=== PATIENT | male | born 1970 | race Two or more races ===

== ENCOUNTER 2020-10-28 09:27 | Emergency (ER) | payer OTHER ==
[~2020-10-28] VITALS: Ht 160 cm; Wt 65.5 kg
[~2020-10-28 09:27] MED LIST: ASA400T PO; ONDA8TAB9 PO; PRED5TAB PO; SULF500T59 PO
[2020-10-28] MEDS ORDERED: acetaminophen 325mg tablet PO ONE (10:00)
[2020-10-28 10:18] LABS: BASOPHILS # (AUTO) 0.1 X10'3 (0-0.2); BASOPHILS % (AUTO) 0.7 % (0-1); EOSINOPHILS # (AUTO) 0.2 X10'3 (0-0.9); EOSINOPHILS % (AUTO) 1.8 % (0-6); HEMATOCRIT 38.3 % (42.0-52.0); HEMOGLOBIN 12.6 g/dl (14.0-17.9); LYMPHOCYTES # (AUTO) 1.3 X10'3 (1.1-4.8); MEAN CORPUSCULAR HEMOGLOBIN 29.7 PG (27.0-31.0); MEAN CORPUSCULAR HGB CONC 32.9 g/dL (33.0-36.5); MEAN CORPUSCULAR VOLUME 90.2 FL (78-98); MONOCYTES # (AUTO) 0.5 X10'3 (0-0.9); MONOCYTES % (AUTO) 5.3 % (2-12); NEUTROPHILS # (AUTO) 7.4 X10'3 (1.8-7.7); NEUTROPHILS % (AUTO) 78.2 % (42-75); PLATELET COUNT 428 X10'3 (140-440); RED BLOOD COUNT 4.25 X10'6 (4.70-6.10); RED CELL DISTRIBUTION WIDTH 14.2 % (11.5-14.5); WHITE BLOOD COUNT 9.5 X10'3 (4.5-11.0)
[2020-10-28 10:28] LABS: ALANINE AMINOTRANSFERASE 200 U/L (12-78); ALBUMIN/GLOBULIN RATIO 0.6 (1.1-1.5); ALKALINE PHOSPHATASE 712 IU/L (46-116); ANION GAP 10 (8-16); ASPARTATE AMINO TRANSFERASE 101 U/L (10-37); BILIRUBIN,TOTAL 0.6 MG/DL (0.1-1.0); BLOOD UREA NITROGEN 11 MG/DL (7-18); BUN/CREATININE RATIO 13.4 (5.4-32.0); CALCIUM 9.6 MG/DL (8.5-10.1); CHLORIDE 105 MMOL/L (99-107); CREATININE 0.82 MG/DL (0.60-1.10); GLUCOSE 104 MG/DL (70-104); POTASSIUM 4.2 MMOL/L (3.5-5.1); SODIUM 142 MMOL/L (135-145); TOTAL CARBON DIOXIDE 27.3 MMOL/L (24-32); TOTAL PROTEIN 8.2 G/DL (6.4-8.2); eGFR > 90 ML/MIN
[2020-10-28 10:59] VITALS: BP 120/82
== END 2020-10-28 11:01 | disposition home or self-care (01) ==
LOC: ER 09:28
DX: R07.89 Other chest pain (principal); R11.0 Nausea; Z90.89 Acquired absence of other organs; Z98.890 Other specified postprocedural states; Z79.899 Other long term (current) drug therapy
CPT/HCPCS: 36415; 71045; 80053; 83880; 84484; 85025; 93005; 99285

== ENCOUNTER 2021-12-24 14:46 | Emergency (ER) | payer SELFPAY ==
[~2021-12-24] VITALS: Ht 167.6 cm; Wt 65.9 kg
[2021-12-24 15:00] VITALS: BP 137/86
[2021-12-24 15:19] LABS: CLARITY,URINE CLEAR (Clear); COLOR,URINE YELLOW (Yellow); GLUCOSE, URINE NEGATIVE (Neg); KETONES,URINE NEGATIVE (Neg); LEUKOCYTE ESTERASE ,URINE NEGATIVE (Neg); NITRITES, URINE NEGATIVE (Neg); OCCULT BLOOD,URINE NEGATIVE (Neg); PROTEIN,URINE NEGATIVE (Neg)
[2021-12-24 15:22] LABS: UA COLLECTION TYPE CLN CATCH MIDSTREAM
[2021-12-24 15:36] LABS: BASOPHILS # (AUTO) 0.1 X10'3 (0-0.2); BASOPHILS % (AUTO) 0.5 % (0-1); EOSINOPHILS # (AUTO) 0.1 X10'3 (0-0.9); HEMATOCRIT 39.7 % (42.0-52.0); HEMOGLOBIN 13.1 g/dl (14.0-17.9); LYMPHOCYTES # (AUTO) 1.4 X10'3 (1.1-4.8); LYMPHOCYTES % (AUTO) 13.9 % (21-51); MEAN CORPUSCULAR HEMOGLOBIN 29.1 PG (27.0-31.0); MEAN CORPUSCULAR HGB CONC 32.9 g/dL (33.0-36.5); MEAN CORPUSCULAR VOLUME 88.6 FL (78-98); MONOCYTES # (AUTO) 0.6 X10'3 (0-0.9); NEUTROPHILS # (AUTO) 7.9 X10'3 (1.8-7.7); NEUTROPHILS % (AUTO) 78.6 % (42-75); PLATELET COUNT 312 X10'3 (140-440); RED BLOOD COUNT 4.48 X10'6 (4.70-6.10); RED CELL DISTRIBUTION WIDTH 14.8 % (11.5-14.5); WHITE BLOOD COUNT 10.1 X10'3 (4.5-11.0)
[2021-12-24 15:43] LABS: ALANINE AMINOTRANSFERASE 93 U/L (12-78); ALBUMIN 3.5 G/DL (3.4-5.0); ALBUMIN/GLOBULIN RATIO 0.9 (1.1-1.5); ALKALINE PHOSPHATASE 248 IU/L (46-116); ANION GAP 11 (8-16); ASPARTATE AMINO TRANSFERASE 101 U/L (10-37); BILIRUBIN,TOTAL 0.7 MG/DL (0.1-1.0); BLOOD UREA NITROGEN 15 MG/DL (7-18); BUN/CREATININE RATIO 15.2 (5.4-32.0); CALCIUM 8.7 MG/DL (8.5-10.1); CHLORIDE 105 MMOL/L (99-107); CREATININE 0.99 MG/DL (0.60-1.10); GLUCOSE 112 MG/DL (70-104); LIPASE 152 U/L (73-393); POTASSIUM 3.9 MMOL/L (3.5-5.1); SODIUM 141 MMOL/L (135-145); TOTAL CARBON DIOXIDE 25.1 MMOL/L (24-32); TOTAL PROTEIN 7.6 G/DL (6.4-8.2); eGFR 80 ML/MIN
== END 2021-12-24 20:36 | disposition left against medical advice (07) ==
LOC: ER 14:47
DX: R10.9 Unspecified abdominal pain (principal); Z53.21 Procedure and treatment not carried out due to patient leaving prior to being seen by health care provider
CPT/HCPCS: 36415; 80053; 81003; 83690; 85025

== ENCOUNTER 2025-01-22 07:27 | Day surgery (SDC) | payer SELFPAY ==
[~2025-01-22] VITALS: Ht 162.6 cm; Wt 65.7 kg
[~2025-01-22 07:27] MED LIST changes: -ONDA8TAB9 PO; -PRED5TAB PO
[2025-01-22 08:18] VITALS: BP 120/75; PULSE 67; RESP 14
[2025-01-22] MEDS ORDERED: sevoflurane 250ml liquid IH ONE (09:15)
[2025-01-22] MEDS ORDERED: fentaNYL/PF 50MCG/1 ML 2ML syringe ONE (09:21)
[2025-01-22] MEDS ORDERED: LIDOcaine 2% (20mg/ml) 5ml vial ONE (09:22)
[2025-01-22] MEDS ORDERED: MIDAZolam 1 MG/ML 5ML VIAL ONE (09:22)
[2025-01-22] MEDS ORDERED: propofol inj 20 ML IV ONE (09:22)
[2025-01-22 09:55] VITALS: BP 100/68; PULSE 56; RESP 10; O2SAT 100
[2025-01-22 10:05] VITALS: BP 102/66; PULSE 57; RESP 12; O2SAT 99
[2025-01-22 10:15] VITALS: BP 102/67; PULSE 57; RESP 14; O2SAT 100
[2025-01-22 10:25] VITALS: BP 120/78; PULSE 52; RESP 10; O2SAT 100
[2025-01-22] MEDS ORDERED: MESA1.2T3 PO (10:30)
[2025-01-22] MEDS ORDERED: PRE5T PO (10:30)
--- NOTE | 2025-01-23 19:42 | PATHOLOGY REPORT ---
[facility] [address] [place] [address] SURGICAL PATHOLOGY REPORT CaseNumber: [id number] Surgeon:Ramón Long M.D. CLINICAL INFORMATION CLINICAL INFORMATION: Left-sided chronic ulcerative colitis. DIAGNOSIS DIAGNOSIS: A.SMALL BOWEL, TERMINAL ILEUM; BIOPSY - BENIGN SMALL BOWEL. - NO HISTOLOGIC ALTERATION. DIAGNOSIS: B.COLON, RANDOM; BIOPSY - FOCAL MILD ACUTE AND MODERATE CHRONIC COLITIS. COMMENT NOTE: The findings present within the random colon biopsy are consistent with ulcerative colitis whic h is largely chronic but there is focal acute inflammation but no adenomatous change. NOTE: The findings present within the random colon biopsy are consistent with ulcerative colitis whic h is largely chronic but there is focal acute inflammation but no adenomatous change. MICROSCOPIC DESCRIPTION A. SMALL BOWEL, TERMINAL ILEUM MICROSCOPIC DESCRIPTION: A single slide of the small bowel, terminal ileum biopsy is reviewed. Presen t is unremarkable small bowel mucosa. The villi are of normal length, non-blunted, and non-widened. There is no increased number of intrae pithelial lymphocytes or neutrophils. There are no erosions or ulcerations. The lamina propria contai ns a few prominent lymphoid aggregates. There are no features of malignancy. B. COLON, RANDOM MICROSCOPIC DESCRIPTION: A single slide of the random colon biopsies is reviewed. Present are five fr agments of colonic mucosa which demonstrate mild acute and moderate chronic inflammation and several fragments of tissue demonstrate hyperchromasia of the component epithelium but no features of adenoma tous change. Several fragments of tissue demonstrate the presence intraepithelial neutrophils. In t his region, the columnar cells demonstrate hyperchromasia. The basement membrane is not thickened. Th e lamina propria is expanded in general by an increased content of fibrous tissue and clusters of lym phocytes. This expansion lamina propria is present to a variety of degrees within the various tissues . There are no features of malignancy. (st) GROSS DESCRIPTION A. SMALL BOWEL, TERMINAL ILEUM GROSS DESCRIPTION: Received in a container of formalin labeled with the patient's name, number, and " terminal ileum BX" are 3 pieces of mercedes tissue 0.2-0.4 x 0.2 x 0.1 cm. The specimen is entirely submit stanislaw as A1. The time at which the specimen was removed was 935. The time at which the specimen was pl aced in formalin was 939. B. COLON, RANDOM GROSS DESCRIPTION: Received in a container of formalin labeled with the patient's name, number, and " random colon biopsy" are 4 pieces of mercedes tissue 0.2-0.4 x 0.2 x 0.1 cm. The specimen is entirely subm itted as B1. The time at which the specimen was removed was 940. The time at which the specimen was placed in formalin was 941. Electronically signed by: Karen Giles M.D. 01/23/2025 7:07:00 PM
== END 2025-01-22 10:40 | disposition home or self-care (01) ==
LOC: GI LAB 07:27
PROVIDERS: ATTEND Internal Medicine Gastroenterology
DX: K51.00 Ulcerative (chronic) pancolitis without complications (principal); K51.50 Left sided colitis without complications
CPT/HCPCS: 45380; J2003; J2250; J2704; J3010; J7030; Z7512